=== PATIENT | male | born 1955 | race Caucasian/White ===

== ENCOUNTER 2022-06-18 10:49 | Outpatient (CLI) | payer OTHER ==
[2022-06-18] MEDS ORDERED: BARIUM SULFATE 135 ML SUSP.RECON (E-Z-HD) PO ONE (11:03)
== END 2022-06-18 19:52 | disposition home or self-care (01) ==
LOC: SRD 10:49
PROVIDERS: ATTEND Otolaryngology
DX: K22.89 Other specified disease of esophagus (principal); R13.10 Dysphagia, unspecified
CPT/HCPCS: 74220-TC

== ENCOUNTER 2022-08-05 17:23 | Inpatient (IN) | payer OTHER ==
[~2022-08-05] VITALS: Ht 188 cm; Wt 81.2 kg
[2022-08-05 17:30] VITALS: BP_SYST 180
[2022-08-05 18:10] LABS: HEMATOCRIT 38.1 % (36-54); RED BLOOD CELL COUNT(AUTO) 4.28 MIL/uL (4.2-6.2); RED CELL DISTRIBUTION WIDTH 14.7 % (9.0-15.0)
[2022-08-05 18:20] LABS: BASOPHILS % (AUTO) 0.4 % (0.0-2.0); EOSINOPHILS # (AUTO) 0.1 K/uL (0.0-0.4); EOSINOPHILS % (AUTO) 1.1 % (0.0-4.0); LYMPHOCYTES # (AUTO) 1.1 K/uL (1.0-5.5); LYMPHOCYTES % (AUTO) 23.9 % (20.5-51.5); MEAN CORPUSCULAR VOLUME 89 fL (79.0-98.0); MONOCYTES # (AUTO) 0.5 K/uL (0.0-1.0); NEUTROPHILS % (AUTO) 64.6 % (40.0-70.0); PLATELET COUNT (AUTO) 284 K/uL (130-430); WHITE BLOOD COUNT (AUTO) 4.7 K/uL (4.8-10.8)
[2022-08-05 18:27] LABS: ANION GAP 9 (5-15); CALCIUM 9.7 mg/dL (8.4-11.0); CHLORIDE 104 mmol/L (98-107); CREATININE 0.75 mg/dL (0.55-1.30); GLUCOSE 105 mg/dL (70-99); POTASSIUM 3.6 mmol/L (3.5-5.1); UREA NITROGEN, BLOOD 8 mg/dL (8-21)
[2022-08-05 18:31] LABS: GFR AFRICAN AMERICAN 134 mL/min (>90)
[2022-08-05 18:34] LABS: ALANINE AMINOTRANSFERASE 21 U/L (12-78); ALBUMIN 3.6 g/dL (3.4-4.8); ASPARTATE AMINOTRANSFERASE 14 U/L (10-37); TOTAL BILIRUBIN 0.7 mg/dL (0.0-1.0)
[2022-08-05] MEDS ORDERED: ENALAPRILAT DIHYDRATE 1.25 MG/ML VIAL IVP ONE (20:00)
[2022-08-05] MEDS ORDERED: hydrALAZINE HCL 20 MG/ML VIAL IVP ONE (20:00)
[2022-08-05] MEDS ORDERED: ENOXAPARIN SODIUM 80 MG/0.8 ML SYRINGE SUBCUT ONE (20:15)
[2022-08-05] MEDS ORDERED: LORazepam 2 MG/ML VIAL IVP ONE (21:30)
[2022-08-05] MEDS ORDERED: HYDROcodone/ACETAMIN 10-325 MG TAB PO PRN (21:30)
[2022-08-05] MEDS ORDERED: ACETAMINOPHEN 325 MG TABLET PO PRN (21:30)
[2022-08-05] MEDS ORDERED: cloNIDine HCL 0.1 MG TABLET PO PRN (21:30)
[2022-08-05] MEDS ORDERED: ONDANSETRON HCL 4 MG/2 ML VIAL IVP PRN (21:30)
[2022-08-05] MEDS ORDERED: NALOXONE HCL 0.4 MG/ML AMP (NARCAN) IVP PRN ×2 (21:30)
[2022-08-05] MEDS ORDERED: NORMAL SALINE 5 ML DISP.SYRIN IVF SCH (22:00)
[2022-08-05] MEDS: NORMAL SALINE 5 ML DISP.SYRIN IVF SCH (22:31)
[2022-08-05] MEDS ORDERED: NITROGLYCERIN 1 INCH (GM) OINT. TP ONE (23:30)
[2022-08-05] MEDS ORDERED: MORPHINE 4 MG INJ. 4 MG/ML VIAL IVP ONE (23:30)
[2022-08-06] MEDS: HYDROcodone/ACETAMIN 5-325 MG TAB (NORCO/ VICODIN) PO PRN ×2 (01:35→20:49)
[2022-08-06] MEDS: LORazepam 1 MG TABLET PO PRN ×4 (01:36→22:11)
[2022-08-06 04:45] VITALS: BP_SYST 130
[2022-08-06] MEDS: NORMAL SALINE 5 ML DISP.SYRIN IVF SCH ×3 (05:03→20:49)
[2022-08-06] MEDS ORDERED: ACETAMINOPHEN 325 MG TABLET PO PRN (06:45)
[2022-08-06 07:12] LABS: BASOPHILS % (AUTO) 0.5 % (0.0-2.0); EOSINOPHILS % (AUTO) 0.9 % (0.0-4.0); HEMATOCRIT 35.9 % (36-54); LYMPHOCYTES # (AUTO) 1.1 K/uL (1.0-5.5); LYMPHOCYTES % (AUTO) 23.6 % (20.5-51.5); MEAN CORPUSCULAR VOLUME 88 fL (79.0-98.0); MONOCYTES # (AUTO) 0.4 K/uL (0.0-1.0); MONOCYTES % (AUTO) 9.2 % (1.7-9.3); NEUTROPHILS % (AUTO) 65.8 % (40.0-70.0); PLATELET COUNT (AUTO) 282 K/uL (130-430); RED BLOOD CELL COUNT(AUTO) 4.06 MIL/uL (4.2-6.2); WHITE BLOOD COUNT (AUTO) 4.5 K/uL (4.8-10.8)
[2022-08-06 07:42] LABS: CALCIUM 9.8 mg/dL (8.4-11.0); CREATININE 0.84 mg/dL (0.55-1.30); PHOSPHORUS 3.3 mg/dL (2.7-4.5); POTASSIUM 3.8 mmol/L (3.5-5.1); THYROID STIMULATING HORMONE 0.93 uIu/mL (0.36-3.74)
[2022-08-06 08:00] VITALS: BP_SYST 134
[2022-08-06] MEDS: HYDROCHLOROTHIAZIDE 25 MG TABLET (HCTZ) PO SCH (08:40)
[2022-08-06] MEDS ORDERED: DUTA0.5C PO (10:27)
[2022-08-06] MEDS ORDERED: [UNRECOGNIZED DRUG - CODE] PO (10:28)
[2022-08-06] MEDS ORDERED: AMLO-506 PO (10:29)
[2022-08-06] MEDS ORDERED: ALFU10TA10 PO (10:30)
[2022-08-06] MEDS ORDERED: ASPI-1393 PO (10:31)
[2022-08-06 12:00] VITALS: BP_SYST 132
[2022-08-06 16:08] VITALS: BP_SYST 133
[2022-08-06 19:50] VITALS: BP_SYST 136
[2022-08-06] MEDS ORDERED: FLUTICASONE PROPIONATE 50 mCg/SPRAY 16 GM NS PRN (21:00)
[2022-08-06] MEDS ORDERED: LISINOPRIL 10 MG TABLET (PRINIVIL) PO SCH (21:00)
[2022-08-07 01:00] VITALS: BP_SYST 132
[2022-08-07] MEDS: NORMAL SALINE 5 ML DISP.SYRIN IVF SCH ×2 (05:34→14:26)
[2022-08-07] MEDS: LORazepam 1 MG TABLET PO PRN (06:53)
[2022-08-07 08:00] VITALS: BP_SYST 124
[2022-08-07 08:22] LABS: BASOPHILS % (AUTO) 0.6 % (0.0-2.0); EOSINOPHILS # (AUTO) 0.1 K/uL (0.0-0.4); EOSINOPHILS % (AUTO) 1.9 % (0.0-4.0); HEMATOCRIT 38.6 % (36-54); LYMPHOCYTES % (AUTO) 17.8 % (20.5-51.5); MEAN CORPUSCULAR VOLUME 90 fL (79.0-98.0); MONOCYTES # (AUTO) 0.3 K/uL (0.0-1.0); MONOCYTES % (AUTO) 5.8 % (1.7-9.3); NEUTROPHILS # (AUTO) 4.3 K/uL (1.8-7.7); NEUTROPHILS % (AUTO) 73.9 % (40.0-70.0); PLATELET COUNT (AUTO) 328 K/uL (130-430); RED BLOOD CELL COUNT(AUTO) 4.27 MIL/uL (4.2-6.2); RED CELL DISTRIBUTION WIDTH 14.7 % (9.0-15.0); WHITE BLOOD COUNT (AUTO) 5.8 K/uL (4.8-10.8)
[2022-08-07] MEDS: HYDROCHLOROTHIAZIDE 25 MG TABLET (HCTZ) PO SCH (08:28)
[2022-08-07 08:52] LABS: CALCIUM 9.5 mg/dL (8.4-11.0); CREATININE 1.03 mg/dL (0.55-1.30); POTASSIUM 3.5 mmol/L (3.5-5.1)
[2022-08-07] MEDS ORDERED: FLUT16SP16 NS (10:06)
[2022-08-07 11:33] VITALS: BP_SYST 128
[2022-08-07] MEDS ORDERED: NON-FORMULARY MEDICATION (Alfuzosin Hcl 10 MG) PO SCH (13:00)
[2022-08-07] MEDS ORDERED: Alfuzosin Hcl 10 MG PO SCH (13:36)
[2022-08-07] MEDS ORDERED: DUTASTERIDE 0.5 MG CAPSULE (AVODART) PO ONE (13:45)
[2022-08-07] MEDS ORDERED: ASPIRIN 81 MG TABLET(ECOTRIN) PO ONE (13:45)
[2022-08-07] MEDS ORDERED: amLODIPine BESYLATE 10 MG TABLET PO ONE (13:45)
[2022-08-07] MEDS ORDERED: LOSARTAN POTASSIUM 50 MG TABLET (COZAAR) PO ONE (13:45)
[2022-08-07 15:38] VITALS: BP_SYST 140
[2022-08-07] MEDS ORDERED: EZETIMIBE 10 MG TABLET PO SCH (21:00)
[2022-08-07] MEDS ORDERED: SIMVASTATIN 40 MG TABLET PO SCH (21:00)
[2022-08-08] MEDS ORDERED: amLODIPine BESYLATE 10 MG TABLET PO SCH (09:00)
[2022-08-08] MEDS ORDERED: REGADENOSON 0.4 MG/5 ML SYRINGE IVP ONE (09:00)
[2022-08-08] MEDS ORDERED: ASPIRIN 81 MG TABLET(ECOTRIN) PO SCH (09:00)
[2022-08-08] MEDS ORDERED: LOSARTAN POTASSIUM 50 MG TABLET (COZAAR) PO SCH (09:00)
[2022-08-08] MEDS ORDERED: DUTASTERIDE 0.5 MG CAPSULE (AVODART) PO SCH (09:00)
== END 2022-08-07 17:30 | disposition left against medical advice (07) | DRG 303 ==
LOC: SED 17:23 → STU 20:09
PROVIDERS: ADMIT Preventive Medicine Preventive Medicine/Occupational Environmental Medicine; ATTEND Preventive Medicine Preventive Medicine/Occupational Environmental Medicine
DX: I25.119 Atherosclerotic heart disease of native coronary artery with unspecified angina pectoris (principal); I10 Essential (primary) hypertension; Z20.822 Contact with and (suspected) exposure to COVID-19; E78.5 Hyperlipidemia, unspecified; D72.819 Decreased white blood cell count, unspecified; R73.9 Hyperglycemia, unspecified; J32.9 Chronic sinusitis, unspecified; Z53.29 Procedure and treatment not carried out because of patient's decision for other reasons
CPT/HCPCS: 36415; 71045; 80048; 80053; 80061; 83735; 83880; 84100; 84443; 84484; 85025; 85379; 93005; 93306; 96372; 96374; 96375; 99291; G0378; J0360; J1650; J2060; J2785

== ENCOUNTER 2022-09-20 10:14 | Day surgery (SDC) | payer OTHER ==
[2022-09-20] VITALS: BP_SYST 153
[~2022-09-20] VITALS: Ht 190.5 cm; Wt 83.9 kg
--- NOTE | 2022-09-20 | NUR ---
Patient complaining about the unable to sleep. Call the DR, waiting for response.
--- NOTE | 2022-09-20 00:20 | NUR ---
Pt stated he was hungry and gave him some jellos and water.
[~2022-09-20 10:14] MED LIST: ALFU10TA10 PO; AMLO-506 PO; ASPI-1393 PO; DUTA0.5C PO; FLUT16SP16 NS; [UNRECOGNIZED DRUG - CODE] PO
[2022-09-20] MEDS ORDERED: PROPOFOL 200MG/ 20ML VIAL (DIPRIVAN) IV ONE (13:05)
[2022-09-20] MEDS ORDERED: ROCURONIUM BROMIDE 10 MG/ML (ZEMURON) IV ONE (13:05)
[2022-09-20] MEDS ORDERED: DEXAMETHASONE SOD PHOSPHATE 4 MG/ML VIAL IVP ONE (13:05)
[2022-09-20] MEDS ORDERED: HYDROmorphone 2 MG/ML VIAL IVP ONE (13:05)
[2022-09-20] MEDS ORDERED: LIDOCAINE 2%, 20 ML MDV INJ ONE (13:05)
[2022-09-20] MEDS ORDERED: NS IRRIG SOLN 1000 ML IR ONE (13:05)
[2022-09-20] MEDS ORDERED: SUCCINYLCHOLINE CHLORIDE 20 MG/ML(QUELICIN) IVP ONE (13:05)
[2022-09-20] MEDS ORDERED: LR 1,000 ML IV.SOLN IV ONE (13:05)
[2022-09-20] MEDS ORDERED: METOCLOPRAMIDE HCL 10 MG/2 ML VIAL IVP ONE (13:05)
[2022-09-20] MEDS ORDERED: ePHEDrine sulfate 50 MG/ML VIAL IVP ONE (13:05)
[2022-09-20] MEDS ORDERED: WATER FOR IRRIGATION,STERILE 1,000 ML IRRIG.SOLN IR ONE (13:05)
[2022-09-20] MEDS ORDERED: MIDAZOLAM HCL 5 MG/5 ML VIAL IVP ONE ×2 (13:05→18:00)
[2022-09-20] MEDS ORDERED: fentaNYL CITRATE/PF 100 MCG/2 ML AMP IVP ONE (13:05)
[2022-09-20] MEDS ORDERED: SEVOFLURANE 15 MIN GAS INH ONE (13:05)
[2022-09-20] MEDS ORDERED: ONDANSETRON HCL 4 MG/2 ML VIAL IVP PRN ×2 (16:30→21:45)
[2022-09-20] MEDS ORDERED: MORPHINE 4 MG INJ. 4 MG/ML VIAL IVP PRN ×4 (16:30→21:45)
[2022-09-20] MEDS ORDERED: LABETALOL HCL 20 MG/4 ML CARTRIDGE IVP ONE (16:59)
[2022-09-20] MEDS ORDERED: MIDAZOLAM HCL 5 MG/5 ML VIAL ONE (18:05)
[2022-09-20] MEDS ORDERED: cloNIDine HCL 0.1 MG TABLET PO PRN (19:15)
[2022-09-20] MEDS ORDERED: [UNRECOGNIZED DRUG - CODE] PO (19:35)
[2022-09-20] MEDS ORDERED: [UNRECOGNIZED DRUG - CODE] PO (19:35)
[2022-09-20 20:00] VITALS: BP_SYST 165
--- NOTE | 2022-09-20 20:00 | NUR ---
received the patient form OR with a gurney and accompany. Pt is A&O x4, very anxious. He stated he was hungry. Pt REFUSED clodonide for his blood pressure. No pain noted.
[2022-09-20 20:15] VITALS: BP_SYST 159
[2022-09-20 20:30] VITALS: BP_SYST 155
[2022-09-20] MEDS: ACETAMINOPHEN 325 MG TABLET PO PRN (20:38)
[2022-09-20 20:45] VITALS: BP_SYST 157
[2022-09-20] MEDS ORDERED: LR 500 ML IV ONE (21:30)
[2022-09-20] MEDS ORDERED: MORPHINE 2 MG/ML INJ. SYRINGE IVP PRN (21:45)
[2022-09-20] MEDS ORDERED: INSULIN REGULAR, HUMAN 100 UNITS/ML, 3 ML VIAL (humuLIN R) SUBCUT PRN (21:45)
[2022-09-20] MEDS ORDERED: DEXTROSE 50% JECT 50 ML DISP.SYRIN IVP PRN (21:45)
--- NOTE | 2022-09-21 03:00 | NUR ---
DR. nova given order to get more anxiety meds since patient is is very anxious and also sleeping pill ambien. Patient is refused to take all the medications. He asked if norco is prescribed and i said only morphine and he finally accept it, but after he said give me later on.
[2022-09-21] MEDS: ACETAMINOPHEN 325 MG TABLET PO PRN ×3 (03:06→13:41)
[2022-09-21] MEDS ORDERED: LORazepam 2 MG/ML VIAL IVP PRN (04:45)
[2022-09-21] MEDS ORDERED: ZOLPIDEM TARTRATE 5 MG TABLET PO PRN (04:45)
[2022-09-21 06:09] VITALS: BP_SYST 158
[2022-09-21 08:29] LABS: BASOPHILS % (AUTO) 0.3 % (0.0-2.0); EOSINOPHILS % (AUTO) 0.2 % (0.0-4.0); HEMATOCRIT 37.3 % (36-54); HEMOGLOBIN 12.7 g/dL (14.0-18.0); LYMPHOCYTES # (AUTO) 1.4 K/uL (1.0-5.5); LYMPHOCYTES % (AUTO) 15.3 % (20.5-51.5); MEAN CORPUSCULAR HEMOGLOBIN 30 pg (27-31); MEAN CORPUSCULAR HGB CONC 34 % (32-36); MEAN CORPUSCULAR VOLUME 89 fL (79.0-98.0); MONOCYTES % (AUTO) 10.4 % (1.7-9.3); NEUTROPHILS # (AUTO) 6.8 K/uL (1.8-7.7); NEUTROPHILS % (AUTO) 73.8 % (40.0-70.0); PLATELET COUNT (AUTO) 245 K/uL (130-430); RED CELL DISTRIBUTION WIDTH 13.5 % (9.0-15.0); WHITE BLOOD COUNT (AUTO) 9.3 K/uL (4.8-10.8)
[2022-09-21 08:32] LABS: ALBUMIN 3.7 g/dL (3.4-4.8); CALCIUM 9.4 mg/dL (8.4-11.0); CREATININE 0.78 mg/dL (0.55-1.30); TOTAL BILIRUBIN 0.7 mg/dL (0.0-1.0)
--- NOTE | 2022-09-21 08:44 | NUR ---
AT [facility] TO HAVE REGULAR DIET PER DR. GRESHAM
[2022-09-21] MEDS: LOSARTAN POTASSIUM 50 MG TABLET (COZAAR) PO SCH ×2 (09:00→09:33)
[2022-09-21] MEDS: amLODIPine BESYLATE 10 MG TABLET PO SCH ×2 (09:00→09:37)
[2022-09-21] MEDS ORDERED: EZETIMIBE 10 MG TABLET PO SCH (09:00)
[2022-09-21] MEDS ORDERED: SIMVASTATIN 40 MG TABLET PO SCH (09:00)
[2022-09-21] MEDS ORDERED: DUTASTERIDE 0.5 MG CAPSULE (AVODART) PO SCH (09:00)
[2022-09-21] MEDS ORDERED: ASPIRIN 81 MG TABLET(ECOTRIN) PO SCH (09:00)
[2022-09-21] MEDS ORDERED: NON-FORMULARY MEDICATION (Amlodipine Bes/Olmesartan Med (Amlodipine-Olmesartan 10-40 mg) 1 PO SCH (09:00)
--- NOTE | 2022-09-21 11:40 | NUR ---
NOTES PT VERBALIZES ANXIOUSNESS. REFUSED TO TAKE ANTI-ANXIETY MEDICATION. EXPLAINED BENEFITS AND RISKS X3, STILL REFUSED. PT IS A/OX4. ABLE TO MAKE HIS NEEDS KNOWN. ENCOURAGED TO USE CALL LIGHT FOR ASSISTANCE. PTY VERBALIZES UNDERSTANDING.
[2022-09-21 16:10] VITALS: BP_SYST 151
== END 2022-09-21 16:30 | disposition home or self-care (01) ==
LOC: SOR 10:14 → SMU 10:15 → SOR 09-21 16:30
PROVIDERS: ATTEND Otolaryngology
DX: J32.4 Chronic pansinusitis (principal); D38.5 Neoplasm of uncertain behavior of other respiratory organs; N40.0 Benign prostatic hyperplasia without lower urinary tract symptoms; I10 Essential (primary) hypertension; I25.10 Atherosclerotic heart disease of native coronary artery without angina pectoris; K21.9 Gastro-esophageal reflux disease without esophagitis; E78.5 Hyperlipidemia, unspecified; Z87.891 Personal history of nicotine dependence; Z79.899 Other long term (current) drug therapy; Z20.822 Contact with and (suspected) exposure to COVID-19
CPT/HCPCS: 36415 ×2; 31298; 80053; 82962; 83735; 85025; 87070; 87075; 87186; 87101; 88304; 88305; 88311; 88313; 87426; 30140; 30520; 31255; 31256; U0003; J1100; J2001; J2765; J2250; J2704; J0330; J3010; J1170; J7120; C1726; J2405; J2270

== ENCOUNTER 2022-09-28 23:08 | Emergency (ER) | payer OTHER ==
[~2022-09-28] VITALS: Ht 190.5 cm; Wt 83.9 kg
[~2022-09-28 23:08] MED LIST changes: +[UNRECOGNIZED DRUG - CODE] PO
[2022-09-28 23:22] VITALS: BP_SYST 119
--- NOTE | 2022-09-28 23:25 | NUR ---
Patient triaged and placed in waiting room. VS checked and patient appears in no acute distress at this time. Accompanied by self, awaiting available bed, and MD notified of need for MSE.
--- NOTE | 2022-09-29 00:31 | NUR ---
Patient ambulatory to bed 5 for evaluation and treatment. Report given to ROBERT Negro
[2022-09-29 01:03] VITALS: BP_SYST 144
[2022-09-29] MEDS ORDERED: DEXAMETHASONE SOD PHOSPHATE 10 MG/ML VIAL IM ONE (01:15)
[2022-09-29] MEDS ORDERED: PRED20TA PO (01:54)
[2022-09-29] MEDS ORDERED: OXYM15MI9 NS (01:54)
--- NOTE | 2022-09-29 05:33 | NUR ---
PATIENT D/C HOME AT 0330,V/S STABLE
== END 2022-09-29 03:00 | disposition home or self-care (01) ==
LOC: SED 23:08
DX: L76.32 Postprocedural hematoma of skin and subcutaneous tissue following other procedure (principal); J02.8 Acute pharyngitis due to other specified organisms; R06.02 Shortness of breath; I11.0 Hypertensive heart disease with heart failure; I50.9 Heart failure, unspecified; E78.5 Hyperlipidemia, unspecified; Z79.899 Other long term (current) drug therapy
CPT/HCPCS: 99283; 70360; 96372; J1100

== ENCOUNTER 2022-09-30 02:47 | Emergency (ER) | payer OTHER ==
[~2022-09-30] VITALS: Ht 190.5 cm; Wt 83.9 kg
[~2022-09-30 02:47] MED LIST changes: +OXYM15MI9 NS; +PRED20TA PO
[2022-09-30 03:21] VITALS: BP_SYST 121
--- NOTE | 2022-09-30 03:25 | NUR ---
Patient triaged and placed in waiting room. VS checked and patient appears in no acute distress at this time. Accompanied by self , awaiting available bed, and MD notified of need for MSE.
--- NOTE | 2022-09-30 04:15 | NUR ---
ER Dr.D' Patel in triage examining patient.
[2022-09-30 04:50] LABS: BASOPHILS % (AUTO) 0.3 % (0.0-2.0); EOSINOPHILS % (AUTO) 0.4 % (0.0-4.0); HEMATOCRIT 36.7 % (36-54); HEMOGLOBIN 12.7 g/dL (14.0-18.0); MEAN CORPUSCULAR HEMOGLOBIN 30 pg (27-31); MEAN CORPUSCULAR HGB CONC 35 % (32-36); MEAN CORPUSCULAR VOLUME 88 fL (79.0-98.0); MONOCYTES % (AUTO) 9.5 % (1.7-9.3); NEUTROPHILS # (AUTO) 7.3 K/uL (1.8-7.7); NEUTROPHILS % (AUTO) 70.8 % (40.0-70.0); PLATELET COUNT (AUTO) 289 K/uL (130-430); RED BLOOD CELL COUNT(AUTO) 4.18 MIL/uL (4.2-6.2); RED CELL DISTRIBUTION WIDTH 13.9 % (9.0-15.0); WHITE BLOOD COUNT (AUTO) 10.3 K/uL (4.8-10.8)
[2022-09-30 05:11] LABS: CALCIUM 9.5 mg/dL (8.4-11.0); CREATININE 0.95 mg/dL (0.55-1.30)
[2022-09-30 05:17] LABS: ALBUMIN 3.7 g/dL (3.4-4.8); TOTAL BILIRUBIN 0.3 mg/dL (0.0-1.0)
[2022-09-30] MEDS ORDERED: POTASSIUM CHLORIDE 20 MEQ TAB.PRT.SR PO ONE (05:30)
[2022-09-30 05:54] VITALS: BP_SYST 125
--- NOTE | 2022-09-30 05:54 | NUR ---
Patient given written and verbal discharge instructions and verbalizes understanding. ER MD discussed with patient the results and treatment provided. Patient in stable condition. No Rx given. Patient educated on pain management and to follow up with PMD. Pain Scale 0/10. Opportunity for questions provided and answered.
== END 2022-09-30 05:54 | disposition home or self-care (01) ==
LOC: SED 02:47
DX: F13.20 Sedative, hypnotic or anxiolytic dependence, uncomplicated (principal); F41.9 Anxiety disorder, unspecified; I11.0 Hypertensive heart disease with heart failure; I50.9 Heart failure, unspecified; E78.5 Hyperlipidemia, unspecified; Z79.899 Other long term (current) drug therapy
CPT/HCPCS: 36415; 80053; 83735; 85025; 99283